=== PATIENT | female | born 1955 | race Caucasian/White ===

== ENCOUNTER → 2018-11-05 15:28 | Outpatient (CLI) | payer OTHER, SELFPAY ==
[2018-11-05 14:29] VITALS: BMI 25.5
[2018-11-05 16:16] LABS: Absolute Neutrophil Count 4.3 X10^3/uL (2.0-7.7); Basophil# 0.03 X10^3/uL; Basophil% 0.4 % (0-1); Eosinophil# 0.03 X10^3/uL; Eosinophils% 0.4 % (0-5); Hematocrit 43.9 % (37-47); Hemoglobin 15.3 g/dl (12.0-15.0); Lymphocyte % 25.2 % (19-41); Mean Corp Hgb Conc 34.9 g/gl (32-36); Mean Corpuscular Hgb 29.6 pg (27.0-32.0); Mean Corpuscular Volume 84.9 fL (81-99); Mean Platelet Vol. 9.5 fl (6.2-12.0); Monocyte# 0.69 X10^3/uL; Monocyte% 10.2 % (0-10); Neutrophil # 4.29 X10^3/uL (2.7-7.7); Neutrophil % 63.7 % (47-70); Platelet Count 278 K/mm3 (150-450); RBC Distribution Width CV 12.5 % (11.6-14.6); RBC Distribution Width SD 38.1 fl (35.1-43.9); Red Blood Count 5.17 M/mm3 (4.2-5.4); White Blood Count 6.8 K/mm3 (4.4-11.0)
[2018-11-05 16:17] LABS: POSITIVE COUNT NO; POSITIVE DIFFERENTIAL NO; POSITIVE MORPHOLOGY NO
[2018-11-05 17:00] LABS: Anion Gap 8 (5-15); BUN 26 mg/dL (7-18); BUN/Creat Ratio 38.6 RATIO (10-20); Calcium,Total 9.2 mg/dL (8.5-10.1); Chloride 105 mmol/L (98-107); Creatinine, Serum 0.67 mg/dL (0.55-1.02); EST Glomerular Filtration Rate 94 mL/min (>60); Est Glom Filt Rate - Afr Amer 113 mL/min (>60); Glucose 112 mg/dL (74-106); Potassium 3.7 mmol/L (3.5-5.1); Sodium Level 141 mmol/L (136-145)
== END ==
PROVIDERS: Family Provider Family Medicine; PCP Family Medicine; Referring Provider Internal Medicine Cardiovascular Disease; Visit Provider Internal Medicine Cardiovascular Disease
DX: I10 Essential (primary) hypertension (principal); R07.9 Chest pain, unspecified; R00.2 Palpitations
CPT/HCPCS: 36415; 80048; 84443; 85025

== ENCOUNTER → 2018-11-09 11:29 | Outpatient (CLI) | payer OTHER, SELFPAY ==
[2018-11-05 14:29] VITALS: BMI 25.5
== END ==
PROVIDERS: Family Provider Family Medicine; PCP Family Medicine; Referring Provider Internal Medicine Cardiovascular Disease; Visit Provider Internal Medicine Cardiovascular Disease
DX: R07.9 Chest pain, unspecified (principal); I49.9 Cardiac arrhythmia, unspecified
CPT/HCPCS: 93225; 93226

== ENCOUNTER → 2018-12-06 06:37 | Outpatient (CLI) | payer OTHER, SELFPAY ==
[2018-11-05 14:29] VITALS: BMI 25.5
--- NOTE | 2018-12-06 06:45 | ECHOD_ITS ---
Reason For Study: ARRYTHYMIA Procedure This was a 2D Doppler, Color Flow transthoracic echocardiogram. Exam performed in department. Left Ventricle Normal LV size. Left ventricular systolic function is normal. The estimated ejection fraction is 65 %. Stage 1 diastolic dysfunction. No regional wall motion abnormalities noted. Right Ventricle Normal RV size. Normal systolic function. Atria Normal left atrium. Normal right atrium. Mitral Valve Normal mitral valve. Tricuspid Valve Normal tricuspid valve. Mild tricuspid valve insufficiency. Aortic Valve Normal aortic valve. Pulmonic Valve Normal pulmonic valve. Great Vessels Normal aortic root. The pulmonary artery is normal size. Normal inferior vena cava. Pericardium/Pleural No pericardial effusion. MMode/2D Measurements & Calculations LVIDd: 3.7 cm IVSd: 0.75 cm Ao root diam: 3.2 cm LVIDs: 2.6 cm LVPWd: 0.79 cm RVDd: 2.9 cm FS: 30.5 % LAV(MOD-bp): 26.1 ml LVAd ap4: 27.0 cm2 SV(MOD-sp4): 38.2 ml LAV(MOD-bp) Indexed: 15.6 ml/m2 EDV(MOD-sp4): 73.9 ml LAV(MOD-sp2): 33.5 ml EDV(sp4-el): 76.6 ml LAV(MOD-sp4): 19.6 ml LVAs ap4: 16.6 cm2 ESV(MOD-sp4): 35.6 ml ESV(sp4-el): 35.6 ml EF(MOD-sp4): 51.8 % EF(sp4-el): 53.4 % SV(sp4-el): 40.9 ml LA A4 area: 10.4 cm2 LA dimension(2D): 2.7 cm RA A4 area: 12.4 cm2 Time Measurements MV dec time: 0.23 sec Doppler Measurements & Calculations MV E max robby: 66.9 cm/sec Lat Peak E' Robby: 8.6 cm/sec Med Peak E' Robby: 7.4 cm/sec MV A max robby: 89.6 cm/sec E/E' lat: 7.8 E/E' med: 9.1 MV E/A: 0.75 Ao V2 max: 129.8 cm/sec LV V1 max: 96.6 cm/sec PA V2 max: 119.8 cm/sec Ao max P.7 mmHg LV V1 max P.7 mmHg TR max robby: 230.5 cm/sec TR max P.2 mmHg Interpretation Summary Normal LV size. Left ventricular systolic function is normal. The estimated ejection fraction is 65 %. Stage 1 diastolic dysfunction. Mild tricuspid valve insufficiency. Ordering Physician: Larry Daniels Referring Physician: SAMARIA JACKSON Performed By: Leigh Roca RDCS
--- NOTE | 2018-12-06 08:48 | STRESSREP ---
Stress Test Report Exercise myocardial perfusion stress test. 62-year-old lady with a history of chest pain. Resting EKG demonstrates normal sinus rhythm with a rate of 88 bpm normal and normal intervals are noted resting blood pressure 128/84 mmHg. The patient exercised according to regular Kvng protocol for total duration of 8 minutes. The patient maintained sinus rhythm throughout the recording. At rest there were no ST or T wave changes noted suggest ischemia. And at peak exercise upsloping EKG changes of approximately 1.5 mm were noted in leads II, III and aVF the above though suggestive but not diagnostic of ischemia. The resting blood pressure 128/84 mmHg with a peak blood pressure 194/98 mmHg rate pressure product was 30,400. Mild chest tightness was noted with dissipated. Myocardial perfusion protocol. 11.5 mCi of technetium 99m sestamibi was injected at rest. The patient exercised according to regular Kvng protocol for total duration of 8 minutes at peak exercise 33.1 mCi of technetium 99m sestamibi was injected stress images were obtained stress and rest images were reconstructed and compared in the short axis vertical long horizontal long axis. Gated images were also obtained next Perfusion SPECT analysis: Review of the stress images demonstrate normal uptake of tracer noted in all areas of myocardium. The resting images similarly demonstrate normal uptake of tracer noted in all areas of myocardium. No areas of reversibility are noted suggest ischemia no previous infarct is noted. Gated SPECT analysis: The gated ejection fraction is noted to be 81%. Conclusion: Normal exercise myocardial perfusion stress test at a high workload. No obvious clinical angina noted. Preserved ejection fraction.
== END ==
PROVIDERS: Family Provider Family Medicine; PCP Family Medicine; Referring Provider Internal Medicine Cardiovascular Disease; Visit Provider Internal Medicine Cardiovascular Disease
DX: R07.9 Chest pain, unspecified (principal); I10 Essential (primary) hypertension
CPT/HCPCS: 78452; 93017; 93306; A9500; A4216

== ENCOUNTER 2020-10-26 10:32 | Emergency (ER) | payer MEDICARE, BC, SELFPAY ==
[2020-10-26 10:32] VITALS: BP 150/95; PULSE 102; RESP 16; TEMP 36.1; O2SAT 98; BMI 25.5; BMI 25.6
--- NOTE | 2020-10-26 10:46 | EKG12_ITS ---
Test Reason : NAUSEA Blood Pressure : / mmHG Vent. Rate : 084 BPM Atrial Rate : 084 BPM P-R Int : 160 ms QRS Dur : 088 ms QT Int : 376 ms P-R-T Axes : 032 -10 026 degrees QTc Int : 444 ms Normal sinus rhythm Normal ECG Confirmed by MERA BARRETO, MARCOS ([id number]), graphic editor ED LOPEZ ([id number]) on 10/29/2020 7:49:29 AM Referred By: SYED Confirmed By:MARCOS TESFAYE MD
--- NOTE | 2020-10-26 10:49 | ED.VISSUMM ---
- ER Visit Summary Date of Service: 10/26/20 Chief Complaint: Palpitations and nausea History of Present Illness: The patient is a [address] Manzano. She reports that approximately 20 hours ago she was awakened from sleep by palpitations. She describes this as a fast heartbeat that is not irregular. She reports that she has chest tightness that is 3 of 10 severity currently and at worst. There is no change with exertion or deep breaths. She has been nauseated, but is not vomited. No diaphoresis or shortness of breath. Patient denies any possible exposure to Covid. She has had both doses of the vaccine and her second dose was 4 weeks ago. She drinks 1 cup of coffee per day. 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 She readily admits that she feels anxious and depressed. She only sleeping 4 hours at night. She denies any suicidal ideation. Physical Examination: Vitals: Stable. Afebrile. General: Well-nourished and well-developed. Head: Normocephalic atraumatic. Neck: Supple, no lymphadenopathy. No JVD. Nontender. Cardiovascular: Regular rate and rhythm. No murmurs. Respiratory: No respiratory distress. Clear to auscultation bilaterally. Abdominal: Soft, nontender, nondistended, normal bowel sounds. No guarding, rebound, or peritoneal signs. Back: Nontender. Extremities: Nontender, no edema. Skin: Normal color, no rash. Neurologic: Alert and oriented ?3. Cranial nerves II through XII are intact. Normal strength and sensation. Psych: Normal affect. Test Results: EKG is sinus at [address] changes. Is unchanged from October 2018. CBC shows an H&H of 17.1 49.8, seven neutrophils of seventy-two. Chem-7 shows glucose of one thirty-five. Urinalysis shows no infection. Troponin is negative. TSH is 0.87. Chest x-ray in my opinion shows no acute disease. The radiologist raised the possibility of a left lower lobe infiltrate. Emergency Department Course and Treatment: Patient had an IV placed. She is given Ativan and Zofran IV. She is resting more comfortably. I had a prolonged discussion with the patient. She has not had a cough or fever. No shortness of breath. She does not feel that she has pneumonia. Treatment Plan: Patient will be placed on Paxil and given Ativan to use as needed for her anxiety. I also had a prolonged discussion with her at other methods of controlling her depression. Follow-up with primary care physician in 3 to 5 days if not improving. Return to the emergency department for any worsening symptoms. Disposition: To home in improved and stable condition. Impression: One. Palpitations. 2. Nausea. 3. Anxiety. This note was generated with drop.[email or web address] software. It may contain incorrect words, spelling, and punctuation that were not noted in review of the chart prior to signing ED Disposition - Plan for ED Patient: Instructions: ED Depression Prescriptions: Lorazepam [Ativan] 1 mg PO TID PRN #10 tablet PRN Reason: Anxiety Paroxetine [Paxil] 20 mg PO DAILY #30 tablet Ondansetron [Zofran Odt] 4 mg PO Q8H PRN PRN #10 tablet PRN Reason: Nausea Referrals: Eric Bennett MD [Primary Care Provider] - 3-5 Days if not improving Additional Instructions: Try taking the Science of Wellbeing course through [employer].
[2020-10-26] MEDS: LORazepam 2 MG/ML Syringe 1 MG IV (10:54)
[2020-10-26] MEDS: Ondansetron 4 MG/2 ML Vial IV (10:54)
[2020-10-26 11:01] LABS: Absolute Lymphocyte Count 1.62 X10^3/uL (0.83-4.51); Absolute Neutrophil Count 5.9 X10^3/uL (2.0-7.7); Basophil# 0.04 X10^3/uL; Basophil% 0.5 % (0-1); Eosinophil# 0.03 X10^3/uL; Eosinophils% 0.4 % (0-5); Hematocrit 49.8 % (37-47); Hemoglobin 17.1 g/dL (12.0-15.0); Lymphocyte # 1.62 X10^3/ul (4.0); Lymphocyte % 19.8 % (19-41); Mean Corp Hgb Conc 34.3 g/dL (32-36); Mean Corpuscular Hgb 29.2 pg (27.0-32.0); Mean Corpuscular Volume 85.1 fL (81-99); Mean Platelet Vol. 9.1 fl (6.2-12.0); Monocyte# 0.56 X10^3/uL; Monocyte% 6.8 % (0-10); NRBC Flagged by Analyzer 0 % (0-5); Neutrophil # 5.91 X10^3/uL (2.7-7.7); Neutrophil % 72.3 % (47-70); Platelet Count 292 K/mm3 (150-450); RBC Distribution Width CV 12.4 % (11.6-14.6); RBC Distribution Width SD 38.3 fl (35.1-43.9); Red Blood Count 5.85 M/mm3 (4.2-5.4); White Blood Count 8.2 K/mm3 (4.4-11.0)
--- NOTE | 2020-10-26 11:03 | RAD_ITS ---
STUDY: X-RAY CHEST REASON FOR EXAM: Female, 64 years old. Chest pain TECHNIQUE: Single AP portable view of the chest. COMPARISON: Comparison is made with prior study 04/29/2012. FINDINGS: EKG electrodes are seen. Questionable early infiltrate in the left lower lobe. There is no demonstrated pleural abnormality. Normal size heart. Normal mediastinum and aubrey. Normal visualized pulmonary arteries. Normal visualized aortic arch and descending thoracic aorta. There are diffuse degenerative changes of the visualized thoracic spine. Normal visualized ribs, clavicles, and shoulders. There is no demonstrated abnormality of the visualized soft tissue structures of the upper abdomen. RAD/Chest 1 View (Portable) IMPRESSION: Questionable early infiltrate in the left lower lobe. Electronically Signed: Bebeto Carvalho MD at 11:40 EST , Service support ,
[2020-10-26 11:16] LABS: Bacteria 0 SEEN /hpf (None Seen); Mucous, Urine 0 SEEN /hpf (<or=2+); Red Blood Cells-Urine 0 SEEN /hpf (0-5); Squamous Epithelial Cells - UA 0 SEEN /hpf (5-10); White Blood Cells 0 SEEN /hpf (0-5)
[2020-10-26 11:21] LABS: Color, Urine Yellow (Yellow); Glucose, Dipstick Normal (Normal); Ketone-Dipstick Negative (Negative); Leukocyte Esterase-Dipstick 100 /ul (Negative); Nitrite-Dipstick Negative (Negative); Occult Blood-Urine 25 /ul (Negative); Protein-Dipstick 30 mg/dl (Negative); Urine Bilirubin Dipstick Negative (Negative); Urine Clarity Clear (Clear); Urine Urobilinogen Normal (Normal)
[2020-10-26 11:27] LABS: Anion Gap 7 (5-15); BUN 17 mg/dL (7-18); BUN/Creat Ratio 19.8 RATIO (10-20); Calcium,Total 9.9 mg/dL (8.5-10.1); Chloride 104 mmol/L (98-107); Creatinine, Serum 0.86 mg/dL (0.55-1.02); EST Glomerular Filtration Rate 70 mL/min (>60); Est Glom Filt Rate - Afr Amer 85 mL/min (>60); Estimated Creatinine Clearance 51.58 ml/min; Glucose 135 mg/dL (74-106); Potassium 3.9 mmol/L (3.5-5.1); Sodium Level 139 mmol/L (136-145); Thyroid Stim Hormone (TSH) 0.87 uIU/mL (0.358-3.74)
[2020-10-26 12:17] VITALS: BP 130/71; PULSE 82; RESP 18; O2SAT 93
== END 2020-10-26 12:20 | disposition home or self-care (01) ==
PROVIDERS: Emergency Provider Emergency Medicine; PCP Family Medicine
DX: R00.2 Palpitations (principal); R11.0 Nausea; F41.9 Anxiety disorder, unspecified; R07.89 Other chest pain; F32.9 Major depressive disorder, single episode, unspecified; R19.7 Diarrhea, unspecified; R51.9 Headache, unspecified; K58.9 Irritable bowel syndrome, unspecified; M81.0 Age-related osteoporosis without current pathological fracture; Z79.899 Other long term (current) drug therapy; Z87.442 Personal history of urinary calculi
CPT/HCPCS: 71045; 80048; 81001; 84443; 84484; 85025; 93005; 96361; 96374; 96375; 99285; J7040; A4216; J2405

== ENCOUNTER 2023-02-02 03:09 | Emergency (ER) | payer MEDICARE, BC, SELFPAY ==
[2023-02-02 03:09] VITALS: BP 161/91; PULSE 110; RESP 16; TEMP 37.6; O2SAT 96; BMI 26.3
--- NOTE | 2023-02-02 03:19 | EKG12_ITS ---
Test Reason : CP Blood Pressure : / mmHG Vent. Rate : 107 BPM Atrial Rate : 107 BPM P-R Int : 164 ms QRS Dur : 094 ms QT Int : 352 ms P-R-T Axes : 036 -09 029 degrees QTc Int : 469 ms Sinus tachycardia Nonspecific ST abnormality Abnormal ECG Confirmed by MERA BARRETO, MARCOS ([id number]), magazine editor ED LOPEZ ([id number]) on 02/03/2023 8:52:51 AM Referred By: RNADY Confirmed By:MARCOS TESFAYE MD
--- NOTE | 2023-02-02 03:19 | RAD_ITS ---
INDICATION: chest pain EXAMINATION/TECHNIQUE: X-RAY - XR Chest 2 Views COMPARISON: 10/26/2020 FINDINGS: LINES/DEVICES: None. LUNGS: No consolidation, edema or effusion. No pneumothorax. MEDIASTINUM AND CARDIOVASCULAR STRUCTURES: Cardiac silhouette not enlarged. Central airways and mediastinal contour are unremarkable. BONES AND SOFT TISSUES: Mild scoliotic changes in the visualized spine, similar compared to the prior no acute osseous abnormality.. RAD/Chest PA and Lateral IMPRESSION: No acute cardiopulmonary disease. Electronically Signed: Bret Freeman MD at 3:52 EDT ,
[2023-02-02] MEDS: Aspirin 81 MG TAB.CHEW 324 MG PO (03:24)
[2023-02-02 03:29] LABS: Absolute Lymphocyte Count 0.53 X10^3/uL (0.83-4.51); Absolute Neutrophil Count 4.8 X10^3/uL (2.0-7.7); Basophil# 0.03 X10^3/uL; Basophil% 0.5 % (0-1); Eosinophil# 0.04 X10^3/uL; Eosinophils% 0.6 % (0-5); Hemoglobin 14.8 g/dL (12.0-15.0); Lymphocyte # 0.53 X10^3/ul (0.83-4.51); Lymphocyte % 8.5 % (19-41); Mean Corp Hgb Conc 35.2 g/dL (32-36); Mean Corpuscular Hgb 29.7 pg (27.0-32.0); Mean Corpuscular Volume 84.2 fL (81-99); Monocyte# 0.74 X10^3/uL; Monocyte% 11.9 % (0-10); NRBC Flagged by Analyzer 0 % (0-5); Neutrophil # 4.84 X10^3/uL (2.7-7.7); Neutrophil % 78.2 % (47-70); POSITIVE DIFFERENTIAL YES; Platelet Count 163 K/mm3 (150-450); RBC Distribution Width CV 12.2 % (11.6-14.6); RBC Distribution Width SD 37.2 fl (35.1-43.9); Red Blood Count 4.99 M/mm3 (4.2-5.4); White Blood Count 6.2 K/mm3 (4.4-11.0)
--- NOTE | 2023-02-02 03:35 | EDS_ITS ---
HPI History of Present Illness Chief Complaint: Chest Pain Detail of Chief Complaint: Chest pain that awoke patient of sleep yesterday and this morning Informant: patient and spouse/S.O. Onset/Context/Timing Onset: Today and Yesterday Activity at onset: sudden and sleep Timing: Intermittent (First episode lasted 12 hours. Second episode is still present) Quality: Positive for Pressure Location: - (Anterior upper central chest) Current Severity: Mild Maximum Severity: Moderate Worsened By: Nothing Relieved By: Nothing Associated Symptoms: Positive for Nausea, Diaphoresis and Dyspnea; Negative for Cough, Fever, Lightheadedness, Acid Reflux or Palpitations Narrative Narrative: Patient is a 67-year-old woman with history of anxiety. She was awakened yesterday morning from sleep at approximately 0200 with chest pressure, nausea, mild shortness of breath and diaphoresis. She felt very anxious. She took a Xanax pill. She states normally this will alleviate her anxiety. The discomfort lasted until 2 PM. This was associated with diarrhea which commonly occurs when she has an anxiety reaction. She denies history of VTE. She denies leg pain, swelling or discoloration. She has no risk factors for VTE. Patient denies history of hiatal hernia, read or peptic disease. Patient denies black or maroon-colored stool. Patient denies fever, chills night sweats. Patient denies headache, visual, ocular auditory symptoms. Prior Similar Symptoms: Yes (Anxiety. What concerns patient is duration of symptoms) Recent Illness/Hospitalization: No CVD Risk Factors: Positive for Hypertension; Negative for Diabetes, Hypercholesterolemia, Family History 1' </=55 or Smoking PE Risk Factors: Negative for Recent Travel/Surgery, Recent Immobilization, Prior DVT or PE or Cancer TAD Risk Factors: Positive for Hypertension; Negative for Marfan's Syndrome or Family History [facility] Medical History (Updated 02/02/23 @ 03:[address] Trung Fritz MD) Essential (primary) hypertension IBS (irritable bowel syndrome) Kidney stones Osteoporosis Home Medications calcium w/ Vitamin k 3 tab PO DAILY 11/05/18 [History Last Taken Unknown] cholecalciferol (vitamin D3) 25 mcg (1,000 unit) capsule 1,000 unit PO DAILY 11/05/18 [History Last Taken Unknown] lisinopril 10 mg tablet 10 mg PO DAILY 11/05/18 [History Last Taken Unknown] metoprolol tartrate 25 mg tablet 25 mg PO DAILY 11/05/18 [History Last Taken Unknown] alprazolam 0.25 mg tablet (Xanax) 0.25 mg PO TID PRN Anxiety 02/02/23 [History Last Taken Unknown] atorvastatin 10 mg tablet 10 mg PO QHS 02/02/23 [History Last Taken Unknown] escitalopram oxalate 10 mg tablet (Lexapro) 10 mg PO DAILY 02/02/23 [History Last Taken Unknown] Allergy/AdvReac Type Severity Reaction Status Date / Time No Known Allergies Allergy Unverified 02/02/23 03:15 Family History Father Hypertension Heart disease Mother Hypertension Heart disease Surgical History History of hysterectomy History of lithotripsy History of tonsillectomy Social History (Updated 02/02/23 @ 03:[address] Trung Fritz MD) household members: spouse Smoking Status: Never smoker ROS ROS ED Constitutional Constitutional ED: Denies chills, fever(s) or subjective Eyes Eyes: Reports none; Denies blurry vision or change in vision ENT ENT ED: Denies ear pain or rhinorrhea Cardiovascular Cardiovascular: Reports as per HPI; Denies orthopnea or paroxysmal nocturnal dyspnea Respiratory/Chest Respiratory/Chest: Reports dyspnea; Denies cough, dyspnea on exertion, orthopnea or paroxysmal nocturnal dyspnea Gastrointestinal Gastrointestinal: Reports diarrhea and nausea; Denies abdominal pain, constipat ion or melena Genitourinary Genitourinary ED: Denies dysuria, hematuria or urinary frequency Musculoskeletal Musculoskeletal: Denies arthralgias, back pain, myalgias or neck pain Integumentary Denies abscess, Abrasions or rash Neurologic Neurologic: Denies headache(s), paresthesias or weakness Psychiatric Psychiatric: Reports anxiety; Denies depression or suicidal ideation Endocrine Endocrinology: Denies cold intolerance or heat intolerance Hematologic/Lymphatic Hematologic/Lymphatic: Denies easy bleeding or easy bruising EXAM Physical Exam Const Vital Signs: 02/02/23 03:09 02/02/23 03:12 02/02/23 03:21 Temperature 99.6 F H Temperature Source Oral Pulse Rate 110 H Respiratory Rate 16 Respiratory Effort Normal Non-Labored Respiratory Pattern Irregular Blood Pressure 161/91 H Blood Pressure Mean 114 Pulse Ox 96 Oxygen Delivery Method Room Air Room Air Positive well nourished and well developed General Appearance ED: well developed and NAD; Negative for pallor HEENT Reports TM's clear and moist mucous membranes normocephalic and atraumatic Tympanic Membrane ED: Yes TM's clear Eyes PERRL and EOMs intact bilaterally General Eye ED: Negative for pale conjunctiva or scleral icterus Neck no lymphadenopathy, supple and no JVD Chest Wall inspection of chest normal and palpation of chest normal Resp normal respiratory effort and clear to auscultation bilaterally Cardio regular rate, regular rhythm, S1 normal heart sound, S2 normal heart sound and no murmurs Peripheral Pulses: pulses 2+ throughout GI normal to inspection, nondistended, normoactive bowel sounds, soft to palpation, non-tender, non-distended and no masses; Negative for hepatosplenomegaly GI Narrative: There is no palpable pulsatile mass. There is no abdominal bruit. Back/Spine no CVA tenderness Extremity normal to inspection Extremity Narrative: There is no asymmetry, swelling, discoloration, leg vein distention, palpable cords or tenderness along the distribution of the deep venous system. General Extremety ED: Negative for edema, pulses abnormal or tenderness General Extremity: Negative for edema or pulses abnormal Neuro oriented x3, CN's II-XII intact bilaterally and no sensory deficits noted Sensorium / Orientation: awake and alert Psych mental status grossly normal Psych Narrative: Patient states she is anxious when asked. Skin no rashes or lesions noted and no wounds General Skin Exam: Negative for jaundice or pallor Heart Score History: Slightly/Non-Suspicious ECG: Normal Age: >/= 65 years Risk Factors: 1 or 2 Risk Factors Troponin: </= Normal Limit Score: 3 MDM MDM MDM Narrative Medical decision making narrative: Since patient is greater than age of 60 does have risk factors for coronary disease EKG and troponin was obtained. If first troponin is normal since she had pain for greater than 12 hours of pain 24 hours ago this would rule out cardiac cause and probable causes anxiety. History and physical does not suggest aortic dissection, pulmonary embolus, pneumothorax. Work-up included EKG, troponin, CBC, basic metabolic panel and chest x-ray. With a normal EKG, normal troponin and heart score of 3 patient is at low risk for major acute cardiac event over the next 6 weeks and can safely be discharged to home. Suspect her symptoms are due to anxiety. She does admit she is dressed. History & Record Review Additional record(s) reviewed:: Prior outpatient record (Echo November 2018 revealed stage I diastolic congestive heart failure. Stress test was negative.), Prior ED visit and Prior labs Lab Data Attestation: I reviewed the patient's lab results. Lab results narrative: CBC is unremarkable. Basic metabolic panel is remarkable for an elevated BUN to creatinine ratio and elevated glucose. CO2 and anion gap normal. First troponin is 4. This rules out cardiac etiology. Labs: Laboratory Results - last 24 hr 02/02/23 02/02/23 03:20 03:20 WBC 6.2 RBC 4.99 Hgb 14.8 Hct 42.0 MCV 84.2 MCH 29.7 MCHC 35.2 RDW Std Deviation 37.2 RDW Coeff of David 12.2 Plt Count 163 MPV 9.0 Immature Gran % (Auto) 0.300 Neut % (Auto) 78.2 H Lymph % (Auto) 8.5 L Harney % (Auto) 11.9 H Eos % (Auto) 0.6 Baso % (Auto) 0.5 Absolute Neuts (auto) 4.8 Absolute Lymphs (auto) 0.53 L Nucleated RBC % 0 Sodium 140 Potassium 3.4 L Chloride 107 Carbon Dioxide 26.0 Anion Gap 7 BUN 19 H Creatinine 0.58 Estim Creat Clear Calc 42.59 Est GFR (MDRD) Af Amer 132 Est GFR (MDRD) Non-Af 109 BUN/Creatinine Ratio 32.5 H Glucose 142 H Calcium 9.2 Troponin I High Sens 4 Radiography Chest X-Ray - ED: 2 View and Read by ED Physician (Chest x-ray independently reviewed interpreted by me at 0034 as negative. Cardiac silhouette and size normal. Perihilar region normal. Lung parenchyma normal. No evidence of effusion. Osseous structures are unremarkable.) Diagnostic Testing: Clinical Impression(s) from Imaging Studies Chest X-Ray 02/02/23 03:19 IMPRESSION: No acute cardiopulmonary disease. Electronically Signed: Bret Freeman MD at 3:52 EDT , EKG Initial EKG: Attestation: I personally reviewed and interpreted this EKG as follows: Interpretation: Sinus Tachycardia (Rate is 107. DC interval is 164 ms. Cures duration 94 ms. QT duration 352 ms. [place] is normal. There is nonspecific changes noted lateral leads.) Prior: Unchanged (October 26, 2020) Discharge Plan Triage Chief Complaint: Chest Pain ED Provider: Trung Fritz Dx/Rx/DC Orders Clinical Impression: Chest pressure, Essential (primary) hypertension, Non-cardiac chest pain, Sinus tachycardia, Anxiety reaction Instructions: ED Chest Pain, Noncardiac Prescriptions: No Action metoprolol tartrate 25 mg tablet 25 mg PO DAILY calcium w/ Vitamin k 3 tab PO DAILY lisinopril 10 mg tablet 10 mg PO DAILY cholecalciferol (vitamin D3) 1,000 unit capsule 1,000 unit capsule 1,000 unit PO DAILY atorvastatin 10 mg tablet 10 mg PO QHS alprazolam [Xanax] 0.25 mg Tablet 0.25 mg PO TID PRN (Reason: Anxiety) escitalopram oxalate [Lexapro] 10 mg Tablet 10 mg PO DAILY Primary Care Provider: Eric Bennett Referrals: Eric Bennett MD [Primary Care Provider] - 3-5 Days if not improving Disposition Disposition: Home, Self Care
[2023-02-02 03:45] LABS: Differential Indicated SCAN CRITERIA MET
[2023-02-02 03:55] LABS: Anion Gap 7 (5-15); BUN 19 mg/dL (7-18); BUN/Creat Ratio 32.5 RATIO (10-20); Calcium,Total 9.2 mg/dL (8.5-10.1); Chloride 107 mmol/L (98-107); Creatinine, Serum 0.58 mg/dL (0.55-1.02); EST Glomerular Filtration Rate 109 mL/min (>60); Est Glom Filt Rate - Afr Amer 132 mL/min (>60); Estimated Creatinine Clearance 42.59 ml/min; Glucose 142 mg/dL (74-106); Potassium 3.4 mmol/L (3.5-5.1); Sodium Level 140 mmol/L (136-145); Troponin-I HS (w/2H Reflex) 4 pg/mL (3.0-54.0)
[2023-02-02 04:09] VITALS: BP 152/75; RESP 16
[2023-02-02 04:09] LABS: Differential Comment SCANNED
[2023-02-02 05:23] LABS: Reflex Troponin-HS? (from REC) Y
== END 2023-02-02 04:17 | disposition home or self-care (01) ==
LOC: ED 04:12
PROVIDERS: Emergency Provider Emergency Medicine; PCP Family Medicine; Visit Provider Emergency Medicine
DX: R07.89 Other chest pain (principal); I10 Essential (primary) hypertension; F41.1 Generalized anxiety disorder; R11.0 Nausea; R06.02 Shortness of breath; R19.7 Diarrhea, unspecified; R73.9 Hyperglycemia, unspecified; Z79.899 Other long term (current) drug therapy
CPT/HCPCS: 71046; 80048; 84484; 85025; 93005; 99285; A4216

== ENCOUNTER 2024-08-16 07:20 | Emergency (ER) | payer MEDICARE, BC, SELFPAY ==
[2024-08-16 07:21] VITALS: BP 171/101; PULSE 91; RESP 16; TEMP 36.6; O2SAT 99; BMI 26.5
--- NOTE | 2024-08-16 07:25 | CT_ITS ---
STUDY: CT ABDOMEN AND PELVIS WITH CONTRAST REASON FOR EXAM: Female, 68 years old. Colitis PT WITH ON AND OFF DIARRHEA FOR SEVERAL DAYS. NOW HAVING ABD PAIN AND NAUSEA AND PASSING BLOOD RADIATION DOSAGE (If Supplied By Facility): CTDIvol = ( 7.95 ) mGy, DLP = ( 481.06 ) mGycm TECHNIQUE: Transaxial images were obtained from the dome of the diaphragm to the symphysis pubis without oral contrast. ml of 100mL Isovue-300 contrast was administered. Sagittal and coronal images were reconstructed. Individualized dose optimization techniques were used for this CT. COMPARISON: None. FINDINGS: There are chronic interstitial fibrotic changes of the lung bases. Normal liver. Normal gallbladder and extrahepatic biliary system. Normal spleen. Normal pancreas. Normal bilateral adrenal glands. Normal right kidney. Normal left kidney. Normal visualized stomach. Normal small intestine. Mild sigmoid diverticulosis is present without acute inflammation. No abscess or free air is present. No visualized bowel wall thickening. No demonstrated bowel dilatation or abnormal air-fluid levels. The appendix is visualized and appears normal. Normal abdominal aorta. Normal inferior vena cava. Normal retroperitoneum. Normal urinary bladder. There is absence of the uterus consistent with a prior hysterectomy. Normal abdominal wall. There are diffuse degenerative changes of the visualized lumbar spine. CT/Abdomen/Pelvis W IV Cont ONLY IMPRESSION: 1. Mild sigmoid diverticulosis is present without acute inflammation. No abscess or free air is present. No visualized bowel wall thickening. No demonstrated bowel dilatation or abnormal air-fluid levels. The appendix is visualized and appears normal. Electronically Signed: Dillon Rodney MD at 9:01 EST ,
--- NOTE | 2024-08-16 07:46 | ED.VIS.GI ---
HPI HPI - GI History of Present Illness Chief Complaint: Abd Pain Informant: patient Narrative Narrative: 68-year-old female presenting to the emergency room with diarrhea and abdominal pain. Patient states that last she began to have abdominal pain and diarrhea. Thursday and into Thursday she was feeling better but pain returned yesterday. She notes discomfort of her lower abdomen. She notes small diarrheal stools. She notes some blood with wiping. She notes rectal soreness from irritation. She notes she has had prior colonoscopy there were otherwise negative. She has been diagnosed with irritable bowel in the past but never colitis or diverticulitis. She denies any dysuria. Tmax 100.2. No cough runny nose sore throat or rashes. She denies any new medications or recent antibiotics. [facility] Medical History (Updated 08/16/24 @ 09:[address] Alex Ferraro, DO) IBS (irritable bowel syndrome) Kidney stones Essential (primary) hypertension Osteoporosis Home Medications ?Medication ?Instructions ?Recorded ?Last Taken ?Type calcium w/ Vitamin k 3 tab PO DAILY 11/05/18 Unknown History cholecalciferol (vitamin D3) 25 1,000 unit PO DAILY 11/05/18 Unknown History mcg (1,000 unit) capsule lisinopril 10 mg tablet 10 mg PO DAILY 11/05/18 Unknown History metoprolol tartrate 25 mg tablet 25 mg PO DAILY 11/05/18 Unknown History alprazolam 0.25 mg tablet (Xanax) 0.25 mg PO TID PRN Anxiety 02/02/23 Unknown History atorvastatin 10 mg tablet 10 mg PO QHS 02/02/23 Unknown History escitalopram oxalate 10 mg tablet 10 mg PO DAILY 02/02/23 Unknown History (Lexapro) amoxicillin 875 mg-potassium 875 mg PO Q12H #14 TABLETS 08/16/24 Unknown Rx clavulanate 125 mg tablet ondansetron 4 mg disintegrating 4 mg PO Q6H PRN PRN Nausea #15 tabs 08/16/24 Unknown Rx tablet oxycodone-acetaminophen 5 mg-325 1 tab PO Q6H PRN PRN Pain 3 days 08/16/24 Unknown Rx mg tablet #12 TABLETS Allergy/AdvReac Type Severity Reaction Status Date / Time No Known Allergies Allergy Verified 08/16/24 07:23 Family History Father Hypertension Heart disease Mother Hypertension Heart disease Surgical History History of tonsillectomy History of lithotripsy History of hysterectomy Social History household members: spouse Smoking Status: Never smoker ROS ROS ED Constitutional Constitutional ED: Reports fever(s); Denies chills or weight loss Eyes Eyes: Denies change in vision or diplopia ENT ENT ED: Denies ear pain, rhinorrhea or sore throat Cardiovascular Cardiovascular: Denies chest pain, orthopnea, palpitations or racing heartbeat Respiratory/Chest Respiratory/Chest: Denies cough, dyspnea or orthopnea Gastrointestinal Gastrointestinal: Reports abdominal pain, diarrhea and other Details: Decreased appetite ; Denies nausea or vomiting Genitourinary Genitourinary ED: Reports urinary frequency; Denies dysuria or hematuria Musculoskeletal Musculoskeletal: Denies arthralgias or myalgias Integumentary Denies abscess or rash Neurologic Neurologic: Denies headache(s) or weakness Psychiatric Psychiatric: Denies anxiety, depression, suicidal ideation or suicidal thoughts Endocrine Endocrinology: Denies polydipsia, polyphagia or polyuria Allergic/Immunologic Allergic/Immunologic ED: Denies mouth swelling, tongue swelling or urticaria EXAM Physical Exam Const Vital Signs: 08/16/24 07:21 Temperature 98 F Temperature Source Oral Pulse Rate 91 Respiratory Rate 16 Blood Pressure 171/101 H Blood Pressure Mean 124 Pulse Ox 99 Oxygen Delivery Method Room Air Positive well nourished and well developed General Appearance ED: well developed and NAD HEENT Reports normocephalic, head/scalp atraumatic and moist mucous membranes Eyes PERRL and EOMs intact bilaterally Neck no lymphadenopathy, supple and no JVD Resp normal respiratory effort and clear to auscultation bilaterally Cardio regular rate, regular rhythm and no murmurs GI no masses Inspection: Negative for abdominal distention Auscultation: normoactive bowel sounds Palpation: soft and tender LLQ and suprapubic; Negative for guarding, rigid or rebound tenderness present Back/Spine no CVA tenderness and normal ROM Extremity normal to inspection General Extremety ED: Negative for edema General Extremity: Negative for edema Neuro oriented x3 and CN's II-XII intact bilaterally Sensorium / Orientation: alert Motor Exam: strength 5/5 throughout Psych mental status grossly normal Mood & Affect: Negative for depressed or tearful Skin no rashes or lesions noted and no wounds MDM MDM MDM Narrative Medical decision making narrative: Differential diagnosis includes but not limited to infectious diarrhea lightest diverticulitis UTI ureterolithiasis pelvic abscess/intra-abdominal abscess Patient's white count 9.7 hemoglobin 16.9 platelet count of 312. Normal differential. BMP with a glucose of 149 normal LFTs lipase 41. Urinalysis 5-[address] cells [address] negative[address] CT of the abdomen pelvis does not demonstrate any acute inflammatory changes. There are changes consistent with diverticulosis. Spoke with the patient regarding her symptoms and the above findings. We talked about whether or not to treat her as diverticulitis though we do not see the inflammatory changes. She is comfortable with trialing some Augmentin with pain and nausea medication. I feel that this is a reasonable approach to her. She is welcome to return if worsening follow-up as needed History & Record Review Discussion w/independent historian: Patient and Significant other Lab Data Attestation: I reviewed the patient's lab results. Labs: Laboratory Results - last 24 hr 08/16/24 07:38 WBC 9.7 RBC 5.79 H Hgb 16.9 H Hct 47.9 H MCV 82.7 MCH 29.2 MCHC 35.3 RDW Std Deviation 37.5 RDW Coeff of David 12.4 Plt Count 312 MPV 9.1 Immature Gran % (Auto) 0.400 Neut % (Auto) 63.5 Lymph % (Auto) 26.3 Walker % (Auto) 8.9 Eos % (Auto) 0.5 Baso % (Auto) 0.4 Absolute Neuts (auto) 6.2 Absolute Lymphs (auto) 2.55 Nucleated RBC % 0 Sodium 138 Potassium 3.2 L Chloride 104 Carbon Dioxide 27.0 Anion Gap 7 BUN 18 Creatinine 0.78 Estim Creat Clear Calc 59.06 Est GFR (MDRD) Af Amer 94 Est GFR (MDRD) Non-Af 78 BUN/Creatinine Ratio 23.2 H Glucose 149 H Calcium 9.7 Total Bilirubin 1.00 Direct Bilirubin 0.19 AST 16 ALT 28 Alkaline Phosphatase 71 Total Protein 7.7 Albumin 4.3 Globulin 3.4 Lipase 41 Urine Color Yellow Urine Clarity Sl. Cloudy Urine pH 6.0 Ur Specific [place] 1.015 Urine Protein 15 H Urine Glucose (UA) Normal Urine Ketones Negative Urine Occult Blood 25 H Urine Nitrite Negative Urine Bilirubin Negative Urine Urobilinogen Normal Ur Leukocyte Esterase 500 H Urine RBC 0-5 SEEN Urine WBC 5-10 SEEN Ur Squamous Epith Cells 0-5 SEEN Urine Bacteria 0 SEEN Urine Mucus 0 SEEN Radiography Diagnostic Testing: Clinical Impression(s) from Imaging Studies Abdomen/Pelvis CT 08/16/24 07:25 IMPRESSION: 1. Mild sigmoid diverticulosis is present without acute inflammation. No abscess or free air is present. No visualized bowel wall thickening. No demonstrated bowel dilatation or abnormal air-fluid levels. The appendix is visualized and appears normal. Electronically Signed: Dillon Rodney MD at 9:01 EST Reading Location ID and State: [facility] / [place] , Service support , Discharge Plan Triage Chief Complaint: Abd Pain ED Provider: Alex Ferraro Dx/Rx/DC Orders Clinical Impression: Abdominal pain, Diarrhea Instructions: ED Diverticulitis Prescriptions: New oxycodone-acetaminophen 5-325 mg tablet 1 tab PO Q6H PRN PRN (Reason: Pain) 3 Days Qty: 12 0RF amoxicillin-pot clavulanate 875-125 mg tablet 875 mg PO Q12H Qty: 14 0RF ondansetron 4 mg tablet,disintegrating 4 mg PO Q6H PRN PRN (Reason: Nausea) Qty: 15 0RF No Action metoprolol tartrate 25 mg tablet 25 mg PO DAILY calcium w/ Vitamin k 3 tab PO DAILY lisinopril 10 mg tablet 10 mg PO DAILY cholecalciferol (vitamin D3) 1,000 unit capsule 1,000 unit PO DAILY atorvastatin 10 mg tablet 10 mg PO QHS alprazolam [Xanax] 0.25 mg Tablet 0.25 mg PO TID PRN (Reason: Anxiety) escitalopram oxalate [Lexapro] 10 mg Tablet 10 mg PO DAILY Primary Care Provider: Eric Bennett Referrals: Eric Bennett MD [Primary Care Provider] - 3-5 Days if not improving Print Language: Cam[place]onian Disposition Disposition: Home, Self Care
[2024-08-16 07:53] LABS: Bacteria 0 SEEN /hpf (None Seen); Mucous, Urine 0 SEEN /hpf (<or=2+)
[2024-08-16 07:56] LABS: Absolute Lymphocyte Count 2.55 X10^3/uL (0.83-4.51); Absolute Neutrophil Count 6.2 X10^3/uL (2.0-7.7); Basophil# 0.04 X10^3/uL; Basophil% 0.4 % (0-1); Color, Urine Yellow (Yellow); Eosinophil# 0.05 X10^3/uL; Eosinophils% 0.5 % (0-5); Glucose, Dipstick Normal (Normal); Hematocrit 47.9 % (37-47); Hemoglobin 16.9 g/dL (12.0-15.0); Ketone-Dipstick Negative (Negative); Leukocyte Esterase-Dipstick 500 /ul (Negative); Lymphocyte # 2.55 X10^3/ul (0.83-4.51); Lymphocyte % 26.3 % (19-41); Mean Corp Hgb Conc 35.3 g/dL (32-36); Mean Corpuscular Hgb 29.2 pg (27.0-32.0); Mean Corpuscular Volume 82.7 fL (81-99); Mean Platelet Vol. 9.1 fl (6.2-12.0); Monocyte# 0.86 X10^3/uL; Monocyte% 8.9 % (0-10); NRBC Flagged by Analyzer 0 % (0-5); Neutrophil # 6.17 X10^3/uL (2.7-7.7); Neutrophil % 63.5 % (47-70); Nitrite-Dipstick Negative (Negative); Occult Blood-Urine 25 /ul (Negative); Platelet Count 312 K/mm3 (150-450); Protein-Dipstick 15 mg/dl (Negative); RBC Distribution Width CV 12.4 % (11.6-14.6); RBC Distribution Width SD 37.5 fl (35.1-43.9); Red Blood Count 5.79 M/mm3 (4.2-5.4); Specific Gravity, Urine 1.015 (1.002-1.030); Urine Bilirubin Dipstick Negative (Negative); Urine Clarity Sl. Cloudy (Clear); Urine Urobilinogen Normal (Normal); White Blood Count 9.7 K/mm3 (4.4-11.0)
[2024-08-16 08:07] LABS: Red Blood Cells-Urine 0-5 SEEN /hpf (0-5); Squamous Epithelial Cells - UA 0-5 SEEN /hpf (5-10); White Blood Cells 5-10 SEEN /hpf (0-5)
[2024-08-16 08:18] LABS: AST(SGOT) 16 U/L (15-37); Alanine Aminotransfer ALT/SGPT 28 U/L (13-56); Albumin, Serum 4.3 g/dL (3.2-5.0); Alkaline Phosphatase 71 U/L (45-117); Anion Gap 7 (5-15); BUN 18 mg/dL (7-18); BUN/Creat Ratio 23.2 RATIO (10-20); Bilirubin, Direct 0.19 mg/dL (0.00-0.30); Calcium,Total 9.7 mg/dL (8.5-10.1); Chloride 104 mmol/L (98-107); Creatinine, Serum 0.78 mg/dL (0.55-1.02); EST Glomerular Filtration Rate 78 mL/min (>60); Est Glom Filt Rate - Afr Amer 94 mL/min (>60); Estimated Creatinine Clearance 59.06 ml/min; Globulin 3.4 g/dL (2.2-4.2); Glucose 149 mg/dL (74-106); Lipase 41 U/L (13-75); Potassium 3.2 mmol/L (3.5-5.1); Protein, Total 7.7 g/dL (6.4-8.2); Sodium Level 138 mmol/L (136-145)
[2024-08-16] MEDS: Potassium Chloride Oral Tablet 20 MEQ 40 MEQ PO (08:34)
[2024-08-16 09:34] VITALS: BP 149/70; PULSE 75; RESP 16; TEMP 36.5; O2SAT 90
== END 2024-08-16 09:38 | disposition home or self-care (01) ==
PROVIDERS: Emergency Provider Emergency Medicine; PCP Family Medicine; Visit Provider Emergency Medicine
DX: R10.9 Unspecified abdominal pain (principal); R19.7 Diarrhea, unspecified; I10 Essential (primary) hypertension
CPT/HCPCS: 74177; 80048; 80076; 81001; 83690; 85025; 99283; Q9967; A4216